=== PATIENT | female | born 1990 | race Caucasian/White ===

== ENCOUNTER 2019-08-20 14:45 | Inpatient (IN) | payer BC ==
[2019-08-20] MEDS ORDERED: Labetalol IV* 5 MG/ML 20 ML VIAL ONE (16:09)
[2019-08-20] MEDS ORDERED: Magnesium Sulfate OB PREMIX* 40 GM/1,000 ML BAG ONE (16:10)
[2019-08-20] MEDS ORDERED: MAGNESIUM SULF IVPB ONE (16:16)
[2019-08-20] MEDS ORDERED: Buffered Lidocaine 1% SYRIN* 1 ML/SYRINGE INTRADERM ONE (16:16)
[2019-08-20] MEDS ORDERED: Lactated Ringers 1000 ML Bag* 1,000 ML IV ONE (16:16)
[2019-08-20] MEDS ORDERED: Labetalol IV* 5 MG/ML 20 ML VIAL IV PUSH ONE (16:21)
[2019-08-20 16:38] LABS: ABS Eosinophils 0.1 10^3/ul (0-0.6); ABS Lymphocytes 1.7 10^3/ul (1.0-4.8); ABS Monocytes 0.4 10^3/ul (0-0.8); ABS Neutrophils 9.5 10^3/ul (1.5-7.7); Eosinophil % 0.4 %; Hematocrit 35 % (35-47); Lymphocyte % 14.2 %; Mean Corpuscular HGB Conc 34 g/dL (31-36); Mean Corpuscular Hemoglobin 30 pg (27-31); Mean Corpuscular Volume 89 fL (80-97); Mean Platelet Volume 9.8 fL (7.4-10.4); Platelet Count 234 10^3/uL (150-450); Red Cell Distribution Width 15 % (10-15); White Blood Count 11.6 10^3/uL (3.5-10.8)
[2019-08-20] MEDS ORDERED: Magnesium Sulfate OB PREMIX* 40 GM/1,000 ML BAG IVPB SCH (17:00)
[2019-08-20] MEDS ORDERED: Lactated Ringers 1000 ML Bag* 1,000 ML IV SCH (17:00)
[2019-08-20 17:05] LABS: Potassium 3.4 mmol/L (3.5-5.0)
[2019-08-20 17:06] LABS: Albumin 3.5 g/dL (3.2-5.2); Albumin/Globulin Ratio 1.3 (1-3); Calcium 9.1 mg/dL (8.6-10.3); EGFR African American 179.1 (>60); Globulin 2.8 g/dL (2-4); Total Bilirubin 0.4 mg/dL (0.2-1.0); Total Protein 6.3 g/dL (6.4-8.9); Uric Acid 4.3 mg/dL (2.3-6.6)
[2019-08-20 17:10] LABS: Activated Partial Thrombo Time 28.8 seconds (26.0-38.0)
[2019-08-20 17:11] LABS: Fibrinogen 543.3 mg/dL (110.8-404.3); INR 0.93 (0.82-1.09)
[2019-08-20 17:33] LABS: Platelet Count 234 10^3/ul (150-450)
[2019-08-20 17:39] LABS: Urine Benzodiazepine Screen None Detected (None Detect); Urine Opiates Screen None Detected (None Detect)
[2019-08-20 17:48] LABS: Schistocytes ABSENT
[2019-08-20] MEDS ORDERED: Oxytocin in LR* 20 UNITS/1,000 ML BAG IVPB SCH (18:00)
[2019-08-20] MEDS ORDERED: Acetaminophen TAB* 325 MG PO ONE (20:33)
--- NOTE | 2019-08-20 21:12 | HP ---
General Information - Reason for Visit Patient with a 38 week with findings consistent with severe pre- eclampsia. - General Information Maternal Age: 29 Grav: 2 Para: 0 SAB: 1 IEA: 0 Estimated Due Date: 09/02/19 Determined By: Early Ultrasound Gestational Age in Weeks/Days: 38 07/13 Maternal Blood Type and Rh: AB Positive - Results this Serology/RPR Result: Non-Reactive Rubella Result: Immune HBsAg Result: Negative HIV Result: Negative GBS Culture Result: Negative Past Medical History Delivery History: See Records Pertinent Past Medical History: See Records Past Medical History Comment: Hypothyroidism Obesity BMI 39 Pertinent Past Surgical History: See Records Pertinent Family History: See Records - Antepartal Records Antepartal Records: Reviewed, Complicated by: - Pre-eclampsia Review of Systems Constitutional: Comfortable CV Complaint: No Respiratory: Shortness of Breath: No Gastrointestinal: No Nausea/Vomiting, Normal Bowel Movement Genitourinary: No Dysuria, No Bleeding, No Leaking Fluid Musculoskeletal: No Complaint, No Epigastric Pain Neurological: No Headache, No Visual Changes Movement: Normal Exam Allergies/Adverse Reactions: Allergies No Known Allergies Allergy (Verified 08/20/19 15:23) Temp 98.0 BP 180/112 P 84 RR 20 POx 100% RA Lab Values - Entire Visit: Laboratory Tests 08/20/19 08/20/19 08/20/19 16:25 16:25 16:25 WBC RBC Hgb Hct MCV MCH MCHC RDW Plt Count 234 MPV Neut % (Auto) Lymph % (Auto) [place] % (Auto) Eos % (Auto) Baso % (Auto) Absolute Neuts (auto) Absolute Lymphs (auto) Absolute Monos (auto) Absolute Eos (auto) Absolute Basos (auto) Absolute Nucleated RBC Nucleated RBC % Schistocytes Absent INR (Anticoag Therapy) 0.93 APTT 28.8 Fibrinogen 543.3 H D-Dimer, Quantitative 681 H Sodium 139 Potassium 3.4 L Chloride 108 Carbon Dioxide 23 Anion Gap 8 BUN 5 L Creatinine 0.50 L Est GFR ( Amer) 179.1 Est GFR (Non-Af Amer) 148.0 BUN/Creatinine Ratio 10.0 Glucose 86 Uric Acid 4.3 Calcium 9.1 Total Bilirubin 0.40 AST 17 ALT 11 Alkaline Phosphatase 160 H Total Protein 6.3 L Albumin 3.5 Globulin 2.8 Albumin/Globulin Ratio 1.3 Urine Opiates Screen None detected Ur Barbiturates Screen None detected Ur Phencyclidine Scrn None detected Ur Amphetamines Screen None detected U Benzodiazepines Scrn None detected Urine Cocaine Screen None detected U Cannabinoids Screen None detected Blood Type Antibody Screen 08/20/19 08/20/19 16:25 16:25 WBC 11.6 H RBC 4.00 Hgb 12.0 Hct 35 MCV 89 MCH 30 MCHC 34 RDW 15 Plt Count 234 MPV 9.8 Neut % (Auto) 81.4 Lymph % (Auto) 14.2 [place] % (Auto) 3.8 Eos % (Auto) 0.4 Baso % (Auto) 0.2 Absolute Neuts (auto) 9.5 H Absolute Lymphs (auto) 1.7 Absolute Monos (auto) 0.4 Absolute Eos (auto) 0.1 Absolute Basos (auto) 0.0 Absolute Nucleated RBC 0.0 Nucleated RBC % 0.0 Schistocytes INR (Anticoag Therapy) APTT Fibrinogen D-Dimer, Quantitative Sodium Potassium Chloride Carbon Dioxide Anion Gap BUN Creatinine Est GFR ( Amer) Est GFR (Non-Af Amer) BUN/Creatinine Ratio Glucose Uric Acid Calcium Total Bilirubin AST ALT Alkaline Phosphatase Total Protein Albumin Globulin Albumin/Globulin Ratio Urine Opiates Screen Ur Barbiturates Screen Ur Phencyclidine Scrn Ur Amphetamines Screen U Benzodiazepines Scrn Urine Cocaine Screen U Cannabinoids Screen Blood Type AB Positive Antibody Screen Negative - Measurements Height: 5 ft 4.5 in Weight: 291 lb Weight in lbs: 291.336112 Body Mass Index (BMI): 49.1 Pre- Weight: 252 lb Weight Gained This : 39 lbs and 0 ozs - Exam Breast: Breast Exam Deferred CVA: No CVA Tenderness Extremities: No Edema Heart: Normal Rhythm/Heart Sounds HEENT: No Significant Findings Lungs: Clear Bilaterally Rectal: Rectal Exam Deferred Reflexes: DTR 2+, - Thyroid: No Thyromegaly - Abdominal Exam Abdomen Exam: Non-Tender, Fundal Height Consistent with Dates - Ultrasound/Biophysical Profile Biophysical Profile: Normal Reactive NST Targeted Exam Findings See L&D Outpatient Visit Provider Note for Findings: N/A Cervical Exam: 4cm Effacement: 70% Station: -1 Presenting Part: Vertex Membrane Status: Intact Bleeding/Discharge: None EFM Findings - External Monitor Findings Baseline Heart Rate: 130 External Monitor Findings: Accelerations Present, No Pattern of Variable or Late Decelerations Contractions: None Assessment/Plan - Assessment Severe pre-eclampsia at 38 weeks estimated gestational age. - Obstetrical Risk Factors Obstetrical Risk Factors: Obesity, Proteinuria, PreEclampsia with Severe Features - Plan Plan: IV Hydration, Mag Sulfate, Admit - Anticipate Vaginal Delivery Plan Comment: Plan. 1. Control HTN to acceptable range will stat with labetolo IVPB per pre- eclamptic protocol 2. Magnesium sulfate infusion for eclampsia prophylaxis 3. start induction of labor 4. CBC, P33, uricaacid and DIC profile pending. - Date/Time of Admission Date of Admission: 08/20/19 Time of Admission: 16:30
[2019-08-20] MEDS ORDERED: ceFOXitin 2 GM IVPREMIX* 2 GM/50 ML BAG ONE (22:39)
[2019-08-20] MEDS ORDERED: fentaNYL* 50 MCG/ML 2 ML VIAL (100 MCG VIAL) ONE (22:48)
[2019-08-20] MEDS ORDERED: Morphine PF AMP (0.5MG/ML)* 5 MG/10 ML AMP ONE (22:49)
[2019-08-21] MEDS ORDERED: OXYTOCIN* 10 UNITS/ML 1 ML VIAL ONE ×2 (00:06→00:30)
[2019-08-21] MEDS ORDERED: EPHEDrine (Pressors)* 50 MG/ML VIAL ONE (00:06)
[2019-08-21] MEDS ORDERED: PROCHLORPERAZINE INJ 5 MG/ML 2 ML VIAL IV PRN (00:22)
[2019-08-21] MEDS ORDERED: Ondansetron INJ* 2 MG/ML VIAL IV PRN (00:22)
[2019-08-21] MEDS ORDERED: diPHENhydraMINE IV* 50 MG/ML 1 ml VIAL (BENADRYL) IV PRN (00:22)
[2019-08-21] MEDS ORDERED: Naloxone* 0.4 MG/ML 1 ML VIAL IV PRN (00:22)
[2019-08-21] MEDS ORDERED: oxyCODONE TAB* 5 MG TAB PO PRN ×4 (00:22→16:22)
[2019-08-21] MEDS ORDERED: Acetaminophen TAB* 325 MG PO PRN (00:22)
[2019-08-21] MEDS ORDERED: Ketorolac INJ* 30 MG/ML 1 ML VIAL ONE (00:34)
[2019-08-21] MEDS ORDERED: Dibucaine 1% 28.35 GM TUBE PR PRN (00:44)
[2019-08-21] MEDS ORDERED: Glycerin ADULT SUPP PR PRN (00:44)
[2019-08-21] MEDS ORDERED: Zolpidem TAB* 5 MG PO PRN (00:44)
[2019-08-21] MEDS ORDERED: Witch Hazel PAD* JAR TOPICAL PRN (00:44)
[2019-08-21] MEDS ORDERED: Lactated Ringers 1000 ML Bag* 1,000 ML IV SCH (01:00)
[2019-08-21] MEDS ORDERED: Misoprostol TAB* 200 MCG PR ONE (02:14)
[2019-08-21] MEDS ORDERED: Carboprost Tromethamine* 250 MCG INJ IM ONE (02:34)
[2019-08-21] MEDS ORDERED: Carboprost Tromethamine* 250 MCG INJ ONE (02:37)
[2019-08-21 03:13] LABS: Hematocrit 27 % (35-47); Hemoglobin 9.3 g/dL (12.0-16.0); Mean Corpuscular HGB Conc 35 g/dL (31-36); Mean Corpuscular Hemoglobin 31 pg (27-31); Mean Corpuscular Volume 90 fL (80-97); Mean Platelet Volume 10.4 fL (7.4-10.4); Platelet Count 230 10^3/uL (150-450); Red Blood Count 2.97 10^6 /uL (3.70-4.87); Red Cell Distribution Width 15 % (10-15)
[2019-08-21 03:20] LABS: Activated Partial Thrombo Time 21.9 seconds (26.0-38.0); Fibrinogen 454.4 mg/dL (110.8-404.3); INR 0.92 (0.82-1.09)
[2019-08-21 04:38] LABS: ABS Lymphocytes 1.6 10^3/ul (1.0-4.8); ABS Monocytes 0.9 10^3/ul (0-0.8); ABS Neutrophils 15.5 10^3/ul (1.5-7.7); Eosinophil % 0.2 %; Hematocrit 31 % (35-47); Hemoglobin 10.7 g/dL (12.0-16.0); Lymphocyte % 8.8 %; Mean Corpuscular HGB Conc 35 g/dL (31-36); Mean Corpuscular Hemoglobin 31 pg (27-31); Mean Corpuscular Volume 90 fL (80-97); Mean Platelet Volume 9.9 fL (7.4-10.4); Platelet Count 195 10^3/uL (150-450); Red Blood Count 3.47 10^6 /uL (3.70-4.87); Red Cell Distribution Width 15 % (10-15)
[2019-08-21 04:49] LABS: INR 0.94 (0.82-1.09)
[2019-08-21] MEDS ORDERED: Oxytocin in LR* 20 UNITS/1,000 ML BAG IVPB SCH (05:00)
[2019-08-21] MEDS: Levothyroxine TAB* 50 MCG TAB PO SCH (07:20)
[2019-08-21] MEDS: Simethicone TAB* 80 MG TAB.CHEW PO SCH ×4 (08:45→20:51)
[2019-08-21] MEDS: Docusate CAP* 100 MG PO SCH ×3 (08:45→20:51)
[2019-08-21] MEDS: Ketorolac INJ* 30 MG/ML 1 ML VIAL IV PRN ×3 (08:46→20:53)
[2019-08-21] MEDS ORDERED: oxyCODONE TAB* 5 MG TAB ONE (10:13)
[2019-08-21] MEDS: Acetaminophen TAB* 325 MG PO PRN ×2 (17:47→23:39)
[2019-08-21] MEDS: oxyCODONE TAB* 5 MG TAB PO PRN (17:47)
[2019-08-22] MEDS: oxyCODONE TAB* 5 MG TAB PO PRN ×5 (00:07→18:15)
[2019-08-22] MEDS: Ibuprofen TAB* 600 MG PO PRN ×4 (03:10→21:25)
[2019-08-22] MEDS: Levothyroxine TAB* 50 MCG TAB PO SCH (06:06)
[2019-08-22 06:57] LABS: ABS Eosinophils 0.1 10^3/ul (0-0.6); ABS Monocytes 0.6 10^3/ul (0-0.8); ABS Neutrophils 9.6 10^3/ul (1.5-7.7); Eosinophil % 0.6 %; Hematocrit 27 % (35-47); Hemoglobin 9.2 g/dL (12.0-16.0); Lymphocyte % 16.5 %; Mean Corpuscular HGB Conc 34 g/dL (31-36); Mean Corpuscular Hemoglobin 30 pg (27-31); Mean Corpuscular Volume 90 fL (80-97); Mean Platelet Volume 9.9 fL (7.4-10.4); Platelet Count 160 10^3/uL (150-450); Red Blood Count 3.04 10^6 /uL (3.70-4.87); Red Cell Distribution Width 15 % (10-15); White Blood Count 12.2 10^3/uL (3.5-10.8)
[2019-08-22] MEDS: Docusate CAP* 100 MG PO SCH ×3 (08:01→21:25)
[2019-08-22] MEDS: Ferrous Gluconate TAB* 324 MG TAB PO SCH ×2 (08:01→21:25)
[2019-08-22] MEDS: Simethicone TAB* 80 MG TAB.CHEW PO SCH ×4 (08:01→21:25)
[2019-08-22] MEDS: Acetaminophen TAB* 325 MG PO PRN ×4 (08:02→21:25)
[2019-08-23] MEDS: Acetaminophen TAB* 325 MG PO PRN ×4 (02:00→19:40)
[2019-08-23] MEDS: Ibuprofen TAB* 600 MG PO PRN ×3 (03:09→21:54)
[2019-08-23] MEDS: Levothyroxine TAB* 50 MCG TAB PO SCH (06:59)
[2019-08-23] MEDS: Ferrous Gluconate TAB* 324 MG TAB PO SCH (08:25)
[2019-08-23] MEDS: Simethicone TAB* 80 MG TAB.CHEW PO SCH ×4 (08:25→21:07)
[2019-08-23] MEDS: Docusate CAP* 100 MG PO SCH ×3 (08:25→21:08)
--- NOTE | 2019-08-23 16:02 | PN ---
Progress Note - Progress Note Date of Service: 08/23/19 Note: Pt stable for discharge this AM at time of morning rounds and found to be without complaints. Shortly prior to anticipated discharge pt reported to nursing that she was experiencing pain in her right calf. Patient was examined and found to have a normal exam with negative jose's sign. Given patient's several risk factors for DVT including , morbid obesity , receipt of transfusion and TXA, decision was made to proceed with dopplers of the RLE to assess for DVT. Dopplers were found to be positive for DVT of the right tibial vein. Consult placed to Hematology/Oncology who agrees to see the patient today to provide consult regarding initiation of anticoagulation therapy and establishing care. Will obtain EKG. Pt's HR is RRR at this time, she denies CP/SOB. Adolfo Curry, DO [facility]
[2019-08-23] MEDS: Enoxaparin(*) 150 MG/ML 1 ML SYRINGE SUBCUT SCH (20:39)
--- NOTE | 2019-08-23 22:11 | CONS ---
CONSULTATION REPORT: DATE OF CONSULT: 08/23/19 REASON FOR CONSULT: DVT. REFERRING PHYSICIAN: Dr. Curry. HISTORY OF PRESENT ILLNESS: This is a 29-year-old female who was admitted on at 38 weeks gestation with symptoms of preeclampsia. She had a C- section delivery 3 days ago. Delivery complicated by excessive bleeding, 1500 cc mary blood . She received tranexamic acid x1. Bleeding subsequently stopped and she had done well since. She has recovered from surgery, was mobile this morning and was preparing for discharge. When she got up she had a leg against the sink and noticed it was painful. She reported that to the staff and had an ultrasound done. The ultrasound was done at 11:46 today and showed a deep veinous thrombosis in one of paired posterior tibial veins. Other veins were patent. Hemoglobin today is 9.2 down to 10.7 yesterday, it was 9.3 on 08/21/19, MCV is 90. She has a slightly low potassium of 3.4, normal creatinine 0.5, albumin 3.5, normal LFTs, except for elevated alkaline phosphatase of 160 similar to admission. Fibrinogen is 416. INR is 1.94 on 08/21/19. PAST MEDICAL HISTORY: 1. Hypothyroidism. 2. Obesity. PAST SURGICAL HISTORY: Eye surgery that was cosmetic. ALLERGIES: None. FAMILY HISTORY: Maternal grandmother had a retinal artery thrombosis and a blood clot. She is not on superintendent terminal anticoagulation. No other thrombosis in the family. Father had gallstones. SOCIAL HISTORY: Works at [employer]. She does not smoke. She drinks occasionally and she is . GYNECOLOGIC HISTORY: . REVIEW OF SYSTEMS: General: Anxious, distressed of being in the hospital. Denies shortness of breath, chest pain, palpitations. No nausea, vomiting. She is moving her bowels. Urination has been fine. She has some mild pain in the right lower extremities and bilateral swelling, but the right is not anymore swollen than the left. No redness in her skin. No rashes. DIAGNOSTIC STUDIES/LAB DATA: Labs: As noted above. ASSESSMENT AND PLAN: A 29-year-old female who has a right lower extremity DVT 3 days post delivery, high risk period for thrombosis exacerbated by preeclampsia, obesity. She has minimal symptoms. We discussed natural history of the thrombosis after delivery. She will need treatment with Lovenox subcutaneous b.i.d. for 3 months. I suspect she will have minimal usp symptoms given low clot burden. 1. Start Lovenox 120 mg p.o. b.i.d., discharged on the same. 2. We will check Lovenox level 4 to 6 hours after a.m. dose on , . Continue current Lovenox dose after that. 3. Follow up on 09/01/19 in my office and we will plan full duration of anticoagulation. 4. She will require 3 months of therapy, then will stop. She will need prophylactic Lovenox for future pregnancies. 5. We did not advise any compression stockings at this time. If she has symptoms on Friday, we can initiate then. 6. Okay for discharge tomorrow morning after Lovenox teaching and she has tolerated the morning injection. [id number]/[facility] #: [id number] MTDD
[2019-08-23] MEDS ORDERED: Labetalol TAB* 200 MG ONE (23:58)
[2019-08-24] MEDS: Acetaminophen TAB* 325 MG PO PRN ×6 (00:02→23:55)
[2019-08-24] MEDS: Ferrous Gluconate TAB* 324 MG TAB PO SCH ×2 (00:21→08:54)
[2019-08-24] MEDS: oxyCODONE TAB* 5 MG TAB PO PRN (06:31)
[2019-08-24] MEDS: Levothyroxine TAB* 50 MCG TAB PO SCH (06:41)
--- NOTE | 2019-08-24 07:17 | PN ---
Progress Note - Progress Note Date of Service: 08/24/19 Note: Pt with persistent BP's in the 150's/100's overnight. BP at 0015 hours was found to be 155/114. Decision made to start patient on Labetalol 200mg BID. BP' s have now stabilized in normal range. Will continue to monitor BP's closely. Adolfo Curry, DO [facility]
[2019-08-24] MEDS: Simethicone TAB* 80 MG TAB.CHEW PO SCH ×3 (09:00→18:00)
[2019-08-24] MEDS: Docusate CAP* 100 MG PO SCH ×3 (09:00→20:09)
[2019-08-24] MEDS: Labetalol TAB* 200 MG PO SCH ×3 (09:00→23:55)
[2019-08-24] MEDS: Enoxaparin(*) 150 MG/ML 1 ML SYRINGE SUBCUT SCH ×2 (09:01→21:12)
--- NOTE | 2019-08-24 13:25 | OP ---
OPERATIVE REPORT: DATE OF OPERATION: 08/21/19 DATE OF : 89 SURGEON: Rubio Renner MD [employer] SURGEON: Dhruv Curry, ANESTHESIA: Spinal. PRE-OP DIAGNOSIS: at 38 weeks with severe preeclampsia with severe blood pressures and per sistent headaches with complaints of visual changes. The patient declined induction of labor. POST-OP DIAGNOSIS: at 38 weeks with severe preeclampsia with severe blood pressures and pe rsistent headaches with complaints of visual changes. The patient declined induction of labor. OPERATIVE PROCEDURE: Primary low-transverse section. ESTIMATED BLOOD LOSS: 600 cc. FLUIDS: She received 900 cc of IV crystalloid fluid. URINE OUTPUT: 500 cc of clear urine. SPECIMENS SENT TO PATHOLOGY: Cord blood. FINDINGS: Delivery of a male with a weight of 7 pounds 12 ounces with Apgars of 9 and 9 of a clear fluid. There was a normal placenta with a 3-vessel cord noted. Normal bladder and bowel and n ormal adnexa. DESCRIPTION OF PROCEDURE: The patient was taken to the operating room where she was identified. She was placed on the operating table where a spinal anesthetic was obtained without difficulty. She wa s then placed in a supine position with a leftward tilt, prepped and draped in a normal sterile fashi on. A Pfannenstiel skin incision was then made with a knife and extended laterally with curved Mcdaniel scissors. The fascia was then grasped superiorly and inferiorly with Stefan clamps and dissected off sharply from the rectus muscle. The rectus muscle was in the midline bluntly. The perito neum was identified, grasped with pickups, entered sharply with Metzenbaum scissors, and extended sup eriorly and inferiorly sharply. An Mihir retractor was then inserted into the patient's abdomen. A low- transverse incision was made with a knife and extended laterally with Band-Aid scissors. The a mniotic sac was ruptured. The infant's head was then grasped and delivered atraumatically as well as rest of the 's body. The cord was clamped and cut and the infant was handed off to the [facility] photogrammetric technician. Cord bloods were obtained. The placenta was removed manually. The uterus was then cleared of all clots and debris using moist laparotomy sponges. The uterine incision was then close d using 0-Polysorb suture in a running locked fashion with the second imbricating layer of 0 Polysorb suture with good hemostasis noted. The gutters were then irrigated with normal saline. The irrigat ion fluid was sent to suction and the second clearing off the gutters of all clots and debris was don e using moist laparotomy sponges. All the sponges were then removed from the patient's abdomen. The uterine incision was noted to be completely hemostatic. We then proceeded to remove the Mihir retr actor from the patient's abdomen as well. The peritoneum was then closed using 2-0 Polysorb suture in a running fashion, the fascia was closed using 0 Polysorb suture in a running fashion, and the skin was closed with a 4-0 Monocryl subcuticular stitches, after closure of the Pedro's fascia with inter rupted 3-0 Polysorb suture. The patient tolerated the procedure well. Sponge, lap, and needle count s were correct x2. She was then transferred to the recovery room area in stable condition. [id number]/[facility] #: [id number]
[2019-08-25] MEDS: Simethicone TAB* 80 MG TAB.CHEW PO SCH ×2 (00:40→08:55)
[2019-08-25] MEDS: Ferrous Gluconate TAB* 324 MG TAB PO SCH (00:40)
[2019-08-25] MEDS: Acetaminophen TAB* 325 MG PO PRN ×2 (04:01→12:45)
[2019-08-25] MEDS: Levothyroxine TAB* 50 MCG TAB PO SCH (06:14)
[2019-08-25] MEDS: Labetalol TAB* 200 MG PO SCH (08:55)
[2019-08-25] MEDS: Docusate CAP* 100 MG PO SCH (08:55)
[2019-08-25] MEDS: Enoxaparin(*) 150 MG/ML 1 ML SYRINGE SUBCUT SCH (08:59)
[2019-08-25 15:47] VITALS: BP 132/85
== END 2019-08-25 17:24 | disposition home or self-care (01) | DRG 540 ==
LOC: MCHOBOUT 14:45 → MCHOB 16:11 → UNDODISIN 08-23 13:09 → MCHOB 08-23 14:53
PROVIDERS: ADMIT Obstetrics & Gynecology; ATTEND Obstetrics & Gynecology
PROC: 10D00Z1 Extraction of Products of Conception, Low, Open Approach (ICD-10-PCS; principal; 2019-08-20 23:11)
PROC: 30233N1 Transfusion of Nonautologous Red Blood Cells into Peripheral Vein, Percutaneous Approach (ICD-10-PCS; 2019-08-21)
DX: O14.14 Severe pre-eclampsia complicating childbirth (principal); D62 Acute posthemorrhagic anemia; I82.441 Acute embolism and thrombosis of right tibial vein; O99.214 Obesity complicating childbirth; O99.284 Endocrine, nutritional and metabolic diseases complicating childbirth; E03.9 Hypothyroidism, unspecified; O72.2 Delayed and secondary postpartum hemorrhage; O90.81 Anemia of the puerperium; O87.1 Deep phlebothrombosis in the puerperium; Z3A.38 38 weeks gestation of pregnancy; Z37.0 Single live birth
CPT/HCPCS: 36415; 76815; 80053; 80307; 84550; 85025; 85027; 85049; 85362; 85384; 85610; 85730; 86850; 86900; 86901; 86922; 93005; 99223; A9270-GY; G0480; J0694; J1650; J1885; J2590; J3010; J3475; P9040